=== PATIENT | female | born 1995 | race Caucasian/White ===

== ENCOUNTER 2024-03-04 23:35 | Emergency (ER) | payer SELFPAY ==
[2024-03-05] MEDS ORDERED: Ibuprofen 800 MG TAB ONE (00:06)
[2024-03-05] MEDS ORDERED: Sulfameth/Trimethoprim DS 800-160mg TAB ONE (00:07)
== END 2024-03-05 00:10 | disposition home or self-care (01) ==
LOC: BURERS 23:35
DX: T63.301A Toxic effect of unspecified spider venom, accidental (unintentional), initial encounter (principal); M79.89 Other specified soft tissue disorders
CPT/HCPCS: 99283